=== PATIENT | male | born 1960 | race Caucasian/White ===

== ENCOUNTER 2022-08-28 22:00 | Emergency (ER) | payer BC, OTHER ==
[2022-08-28 22:58] VITALS: TEMP 98.2
[2022-08-29] MEDS ORDERED: KETOROLAC 15 MG/ML 1 ML VIAL IVP STA (00:18)
[2022-08-29] MEDS ORDERED: ORPHENADRINE 30 MG/ML 2 ML VIAL IVP STA (00:19)
[2022-08-29] MEDS ORDERED: HYDROmorphone 1 MG/ML 1 ML SYRINGE IVP STA ×2 (00:19→02:53)
--- NOTE | 2022-08-29 00:24 | ED ---
Back Pain HPI - General Chief Complaint: Back Pain/Injury Stated Complaint: back/leg pain Time Seen by Provider: 08/29/22 00:08 Source: patient, RN notes reviewed Limitations: no limitations - History of Present Illness Initial Comments: This is a pleasant 62-year-old male who comes the ER complaining of right-sided sciatica. Patient states he is getting intense pain radiating from his right lower back down the back of his right leg to the lateral aspect of his right lower leg. He is also complaining some numbness in his right foot. Patient states this started 2 weeks ago. There was no injury. Patient was seen by his regular physician and treated with injectable corticosteroid with a following course of corticosteroids. Patient states this actually did nothing. Patient called his regular physician back and had plain film x-rays ordered and physical therapy. Patient states that the physical therapy is actually exacerbating the pain. Patient was also put on [place] by his primary care physician. Patient states this seems to be providing no relief. Patient denying any problems with bowel movements or urination. Patient states the pain is worse with movement, attempted ambulation, he is denying any numbness or tingling in the saddle region. No headache, no fever or chills, no changes in vision or hearing, no sore throat or difficulty with speech, no neck pain, no chest pain or shortness of breath, no abdominal pain, no nausea or vomiting, no changes in urination or bowel movements, no skin rashes or lesions. Past medical, surgical, social, and family history reviewed. MD Complaint: back pain - Related Data Previous Rx's Medication Instructions Recorded Cyclobenzaprine [Flexeril] 10 mg PO TID PRN #20 tab 08/29/22 Naproxen [Naprosyn] 375 mg PO Q12HR PRN #20 tablet 08/29/22 oxyCODONE HCL/ACETAMINOPHEN 1 tab PO Q6HR PRN 3 Days #12 tab 08/29/22 [Percocet 7.5-325 mg] Allergies Allergy/AdvReac Type Severity Reaction Status Date / Time No Known Allergies Allergy Verified 08/29/22 01:29 Review of Systems ROS Statement: Those systems with pertinent positive or pertinent negative responses have been documented in the HPI. ROS Other: All systems not noted in ROS Statement are negative. Past Medical History Past Medical History: Hyperlipidemia, Hypertension History of Any Multi-Drug Resistant Organisms: None Reported Past Surgical History: Back Surgery Past Psychological History: No Psychological Hx Reported Smoking Status: Current every day smoker Past Alcohol Use History: None Reported Past Drug Use History: None Reported General Exam Limitations: no limitations General appearance: alert, in distress Head exam: Present: atraumatic, normocephalic, normal inspection Eye exam: Present: normal appearance, PERRL, EOMI. Absent: scleral icterus, c onjunctival injection, periorbital swelling ENT exam: Present: normal exam, mucous membranes moist Neck exam: Present: normal inspection. Absent: tenderness, meningismus, lymphadenopathy Respiratory exam: Present: normal lung sounds bilaterally. Absent: respiratory distress, wheezes, rales, rhonchi, stridor Cardiovascular Exam: Present: regular rate, normal rhythm, normal heart sounds. Absent: systolic murmur, diastolic murmur, rubs, gallop, clicks GI/Abdominal exam: Present: soft, normal bowel sounds. Absent: distended, tenderness, guarding, rebound, rigid Extremities exam: Present: normal inspection, full ROM, normal capillary refill. Absent: tenderness, pedal edema, joint swelling, calf tenderness Back exam: Present: normal inspection, paraspinal tenderness (Right lumbosacral paraspinal tenderness), other (Straight leg raise is). Absent: muscle spasm, vertebral tenderness, rash noted Expanded Back exam: Present: normal rectal tone. Absent: saddle anesthesia, decreased re ctal tone Back exam: Sciatic Notch Tenderness: Right, Positive Straight Leg Raise: Right (30), Negative Straight Leg Raising: Left Neurological exam: Present: alert, oriented X3, CN II-XII intact, motor sensory deficit (Subjective sensory disturbance to right leg.), reflexes normal, other (Great toe extensor strength +5 out of 5.) Psychiatric exam: Present: normal affect, normal mood Skin exam: Present: warm, dry, intact, normal color. Absent: rash, cyanosis, diaphoretic, erythema, urticaria, vesicles, petechiae, pallor, mottled, abrasion Course Vital Signs 08/28/22 08/29/22 22:54 02:22 Temperature 98.2 F Pulse Rate 94 80 Respiratory 16 15 Rate Blood Pressure 134/82 136/73 O2 Sat by Pulse 98 96 Oximetry - Reevaluation(s) Reevaluation #1: 08/29/22 02:53 Medical record is reviewed Symptoms are improved here in the emergency department Patient is informed of results and questions answered Patient in no distress Still having some pain. We'll repeat the dose of pain medication. Again, patient has no evidence of cauda equina syndrome. Medical Decision Making - Medical Decision Making Differential diagnosis: Sciatica, lumbar radiculopathy, herniated lumbar disc with secondary radiculopathy. Doesn't appear to be consistent with cauda equina syndrome. Vision is a large posterior sequestered disc herniation at L4-L5 on the right side. All her anterior disc herniation L4-L5. Patient improved after pain medication. Patient able to move better and ambulated. We'll have the patient follow-up with the back specialist at [facility]. Discussed all findings with the patient, to include the large L4-L5 disc herniation. Going to forego any corticosteroids at this time. Patient was told to return to the ER for any signs or symptoms worsen. Told to return immediately if any other problems arise. All questions answered. Treatment plan discussed. Patient in agreement Every effort has been made to ensure accuracy of this dictation. However, due to the limitations of electronic medical records and dictation devices, errors in charting still occur. Supervising physician Dr. Costello - Lab Data Result diagrams: 08/29/22 00:19 08/29/22 00:19 Lab Results 08/29/22 08/29/22 Range/Units 00:19 00:19 WBC 13.3 H (3.8-10.6) k/uL RBC 5.85 (4.30-5.90) m/uL Hgb 18.6 H (13.0-17.5) gm/dL Hct 54.2 H (39.0-53.0) % MCV 92.6 (80.0-100.0) fL MCH 31.8 (25.0-35.0) pg MCHC 34.3 (31.0-37.0) g/dL RDW 12.3 (11.5-15.5) % Plt Count 226 (150-450) k/uL MPV 8.1 Neutrophils % 59 % Lymphocytes % 27 % Monocytes % 8 % Eosinophils % 2 % Basophils % 1 % Neutrophils # 7.9 H (1.3-7.7) k/uL Lymphocytes # 3.5 (1.0-4.8) k/uL Monocytes # 1.1 H (0-1.0) k/uL Eosinophils # 0.3 (0-0.7) k/uL Basophils # 0.2 (0-0.2) k/uL Sodium 136 L (137-145) mmol/L Potassium 4.9 (3.5-5.1) mmol/L Chloride 102 (98-107) mmol/L Carbon Dioxide 25 (22-30) mmol/L Anion Gap 9 mmol/L BUN 29 H (9-20) mg/dL Creatinine 0.86 (0.66-1.25) mg/dL Est GFR (CKD-EPI)AfAm >90 (>60 ml/min/1.73 sqM) Est GFR (CKD-EPI)NonAf >90 (>60 ml/min/1.73 sqM) Glucose 128 H (74-99) mg/dL Calcium 9.4 (8.4-10.2) mg/dL Total Bilirubin 0.6 (0.2-1.3) mg/dL AST 29 (17-59) U/L ALT 34 (4-49) U/L Alkaline Phosphatase 78 (38-126) U/L C-Reactive Protein <0.5 (<1.0) mg/dL Total Protein 6.8 (6.3-8.2) g/dL Albumin 4.4 (3.5-5.0) g/dL Disposition Clinical Impression: Mechanical back pain, Herniated intervertebral disc of lumbar spine, Acute right lumbar radiculopathy Narrative: L4-L5 disc herniation Disposition: HOME SELF-CARE Condition: Good Instructions (If sedation given, give patient instructions): Acute Low Back Pain (ED), Lumbar Disc Herniation (ED) Additional Instructions: I called the back specialist at [facility] at 8 AM to schedule an appointment. Make sure you tell them that here in the ER tonight and you have a lumbar disc herniation. No driving while taking the pain medication. Pain medicine and the muscle relaxer will make you drowsy. Follow-up with your regular physician as directed. Return to the ER immediately if any symptoms worsen, new symptoms arise, or any other problems develop. Prescriptions: Cyclobenzaprine [Flexeril] 10 mg PO TID PRN #20 tab PRN Reason: Spasms Naproxen [Naprosyn] 375 mg PO Q12HR PRN #20 tablet PRN Reason: Pain oxyCODONE HCL/ACETAMINOPHEN [Percocet 7.5-325 mg] 1 tab PO Q6HR PRN 3 Days #12 tab PRN Reason: Pain Is patient prescribed a controlled substance at d/c from ED?: No Referrals: Sammi Cardona, [Doctor of Osteopathic Medicine] - As Soon As Possible
--- NOTE | 2022-08-29 01:54 | CT ---
EXAMINATION TYPE: CT lumbar spine wo con DATE OF EXAM: 08/29/2022 COMPARISON: HISTORY: syncope, no prior. Pt had LOC unknown amount of time. CT DLP: 859.8 mGycm Automated exposure control for dose reduction was used. Images obtained from the level of T12-S2 vertebra with no contrast. The lumbar vertebrae have normal alignment. There is degenerative disc space narrowing at L5-S1. There is a large posterior right side L4-5 lumbar disc herniation and sequestered disc fragment in th e spinal canal with elevation of the posterior longitudinal ligament. There is no compression fracture. No lumbar paraspinal mass. The sacroiliac joints are intact. Abdominal aorta is atheromatous. No evidence of retroperitoneal donny nopathy. IMPRESSION: Large posterior sequestered disc herniation at L4-5 on the right side. Smaller anterior disc herniati on at L4-5. Mild spondylosis at L5-S1.
[2022-08-29 02:21] LABS: Basophils # (A) 0.2 k/uL (0-0.2); Basophils % (A) 1 %; Eosinophils # (A) 0.3 k/uL (0-0.7); Eosinophils % (A) 2 %; HCT 54.2 % (39.0-53.0); HGB 18.6 gm/dL (13.0-17.5); Lymphocytes # (A) 3.5 k/uL (1.0-4.8); Lymphocytes % (A) 27 %; MCH 31.8 pg (25.0-35.0); MCHC 34.3 g/dL (31.0-37.0); MCV 92.6 fL (80.0-100.0); Mean Platelet Volume 8.1; Monocytes # (A) 1.1 k/uL (0-1.0); Monocytes % (A) 8 %; Neutrophils # (A) 7.9 k/uL (1.3-7.7); Neutrophils % (A) 59 %; Platelet Count 226 k/uL (150-450); RBC 5.85 m/uL (4.30-5.90); RDW 12.3 % (11.5-15.5); WBC 13.3 k/uL (3.8-10.6)
[2022-08-29 02:22] VITALS: BP 136/73; PULSE 80; RESP 15
[2022-08-29 02:41] LABS: ALT 34 U/L (4-49); AST 29 U/L (17-59); African American GFR (CKD) >90 (>60 ml/min/1.73 sqM); Albumin 4.4 g/dL (3.5-5.0); Alkaline Phosphatase 78 U/L (38-126); Anion Gap 9 mmol/L; Blood Urea Nitrogen 29 mg/dL (9-20); Calcium 9.4 mg/dL (8.4-10.2); Carbon Dioxide 25 mmol/L (22-30); Chloride 102 mmol/L (98-107); Glucose 128 mg/dL (74-99); Non-African American GFR(CKD) >90 (>60 ml/min/1.73 sqM); Potassium 4.9 mmol/L (3.5-5.1); Sodium 136 mmol/L (137-145); Total Bilirubin 0.6 mg/dL (0.2-1.3); Total Protein 6.8 g/dL (6.3-8.2)
[2022-08-29 02:55] LABS: C Reactive Protein <0.5 mg/dL (<1.0)
== END 2022-08-29 03:30 | disposition home or self-care (01) ==
LOC: EC 22:00
DX: M51.26 Other intervertebral disc displacement, lumbar region (principal); M54.16 Radiculopathy, lumbar region; I10 Essential (primary) hypertension; F17.200 Nicotine dependence, unspecified, uncomplicated
CPT/HCPCS: 36415; 80053; 85025; 86140; 72131; 99284; 96374; 96376; 96375 ×2; J2360; J1170; J1885

== ENCOUNTER → 2023-12-21 | Outpatient (CLI) | payer BC ==
--- NOTE | 2023-12-21 11:44 | US ---
EXAMINATION TYPE: US scrotum with doppler. Grayscale and color Doppler Duplex imaging performed of t sierra scrotum. 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 There is no evidence of testicular torsion. Presence of hydroceles: no Presence of varicoceles: no IMPRESSION: 1. Epididymal head cysts noted on the right.
== END | disposition home or self-care (01) ==
LOC: RADUSWWP 11:02
PROVIDERS: ATTEND Family Medicine
DX: N50.3 Cyst of epididymis (principal)
CPT/HCPCS: 76870; 93975